=== PATIENT | female | born 1935 | race Caucasian/White ===

== ENCOUNTER 2016-10-30 16:28 | Emergency (ER) | payer OTHER, MEDICARE ==
[2016-10-30 16:44] VITALS: BP 165/88; PULSE 71; RESP 16; TEMP 97.9; O2SAT 92
--- NOTE | 2016-10-30 17:18 | EDPHY ---
H & P Stated Complaint: isolated ankle injury--rollerblader ran into ankle -no fall Source: Patient, Family Exam Limitations: No limitations - Personal History Current Tetanus/Diphtheria Vaccine: Unsure Current Tetanus Diphtheria and Acellular Pertussis (TDAP): Unsure - Medical/Surgical History Hx Asthma: No Hx Chronic Respiratory Disease: No Hx Diabetes: No Hx Cardiac Disease: No Hx Renal Disease: No Hx Cirrhosis: No Hx Alcoholism: No Hx HIV/AIDS: No Hx Splenectomy or Spleen Trauma: No Other PMH: denies - Social History Smoking Status: Never smoked HPI/ROS: CHIEF COMPLAINT: Right ankle pain HISTORY OF PRESENT ILLNESS: Patient was walking across the street in [place] around 3:00 p.m. when a roller bleeder rolled directly across her right ankle. She noted a sudden onset of pain. It is moderate to severe pain. Difficulty walking from it. No radiating pain. No pain in the ipsilateral midfoot, calcaneus, renteria or knee. No trauma or injury elsewhere. No other associated complaints or modifying factors. REVIEW OF SYSTEMS: Ten systems reviewed and are negative unless otherwise noted in the HPI EXAMINATION General Appearance: Alert, no distress Cardiovascular: Pulses normal throughout. Brisk cap refill Neurological: A&O, sensory symmetric, strength symmetric Skin: Warm and dry, no rash. No erythema. No lacerations abrasions or contusions Extremities: Right lower extremity: Tenderness to palpation of the right lateral malleolus. There is no crepitus or deformity. Minimal tenderness medially. No instability. No tenderness of the right midfoot or calcaneus. No tenderness of the right knee. Range of motion is symmetric. DP and PT pulses are symmetric. No tenderness of the proximal fibula. Psychiatric: Mood and affect normal DIFFERENTIAL DIAGNOSES: Including but not limited to hematoma, sprain, strain, fracture, dislocation, fracture dislocation MDM: 5:20 p.m. I have briefly evaluated the patient in the waiting room as there are no available beds in the emergency department at this time. She has pain in the medial and lateral malleoli of the right ankle. She is neuro intact. I have ordered an x-ray. 5:45 p.m. X-ray as interpreted by me reveals no acute fracture or dislocation. 6:15 p.m. X-ray has been read as negative by radiologist. I offered a [place] boot to the patient and she has declined. She prefers an Kermit wrap and use her existing hiking poles. We will apply the Kermit wrap and ambulate her here in the emergency department prior to discharge home. 6:27 p.m. Kermit wrap was insufficient. She now has a [place] boot and crutches. She is ambulating well. The pain is tolerable. Discharged home with instructions to take ibuprofen as discussed. Follow up with primary care physician and Orthopedics for definitive care. Return to ER for worsening symptoms, numbness , tingling, weakness. She is comfortable this plan and discharged home neurovascular intact, in stable condition ED Precautions: Worsening pain. Erythema, edema, cyanosis, pallor, paresthesia or anesthesia. SUPERVISION: This patient was independently evaluated without direct examination by the attending physician. Case was discussed with attending physician. (Quinn Gold ) Constitutional: Initial Vital Signs Temperature (C) 36.6 C 10/30/16 16:41 Heart Rate 71 10/30/16 16:41 Respiratory Rate 16 10/30/16 16:41 Blood Pressure 165/88 H 10/30/16 16:41 O2 Sat (%) 92 10/30/16 16:41 O2 Delivery Mode Room Air Allergies/Adverse Reactions: morphine [Morphine] Adverse Reaction (Intermediate, Verified 10/01/09 19:04) Home Medications: Medication Instructions Recorded [facility] 10/01/09 Medical Decision Making ED Course/Re-evaluation: I did not see this patient while she was in the emergency department. However her care was discussed with the PA while the patient was in the department. I agree with treatment plan and management (Daryn Broussard) Departure - Departure Disposition: Home, Routine, Self-Care Clinical Impression: Ankle sprain, Blunt trauma Condition: Good Instructions: Ankle Sprain (ED), Ankle Strain (ED) Additional Instructions: Weightbearing as tolerated. Ice and elevate off them. Ibuprofen over-the- counter every 6-8 hours as needed. Follow up with orthopedist or primary care physician for definitive care. Return here for worsening symptoms, numbness, tingling, weakness Referrals: Shanelle Peralta MD [Primary Care Provider] - As per Instructions Tucker Burger MD [Medical Doctor] - As per Instructions
== END 2016-10-30 18:33 | disposition home or self-care (01) ==
DX: S93.401A Sprain of unspecified ligament of right ankle, initial encounter (principal); W22.8XXA Striking against or struck by other objects, initial encounter; Y92.009 Unspecified place in unspecified non-institutional (private) residence as the place of occurrence of the external cause; Y99.8 Other external cause status; Y93.01 Activity, walking, marching and hiking
CPT/HCPCS: 73610; 99283; L4386

== ENCOUNTER → 2017-07-05 | Outpatient (CLI) | payer OTHER, MEDICARE | LOC: BMCIMAGING 07:54 | PROVIDERS: ATTEND Internal Medicine | DX: Z12.31 Encounter for screening mammogram for malignant neoplasm of breast (principal) ==

== ENCOUNTER → 2018-08-11 | Outpatient (CLI) | payer OTHER, MEDICARE | LOC: BMCIMAGING 12:54 | PROVIDERS: ATTEND Internal Medicine | DX: Z12.31 Encounter for screening mammogram for malignant neoplasm of breast (principal) ==

== ENCOUNTER → 2018-10-02 | Outpatient (CLI) | payer OTHER, MEDICARE | LOC: BMCIMAGING 11:32 | PROVIDERS: ATTEND Emergency Medicine | DX: M50.322 Other cervical disc degeneration at C5-C6 level (principal) ==